=== PATIENT | female | born 1940 | race Caucasian/White ===

== ENCOUNTER 2024-07-13 16:59 | Emergency (ER) | payer MEDICARE, BC ==
[~2024-07-13] VITALS: Ht 152.4 cm; Wt 45.4 kg
[2024-07-13 17:58] VITALS: BP 160/80; TEMP 98.7; O2SAT 98
== END 2024-07-13 17:59 | disposition home or self-care (01) ==
LOC: ER 17:27
DX: S61.411A Laceration without foreign body of right hand, initial encounter (principal); F02.80 Dementia in other diseases classified elsewhere, unspecified severity, without behavioral disturbance, psychotic disturbance, mood disturbance, and anxiety; G30.9 Alzheimer's disease, unspecified; W26.8XXA Contact with other sharp object(s), not elsewhere classified, initial encounter; Y93.89 Activity, other specified; Y92.89 Other specified places as the place of occurrence of the external cause; Y99.8 Other external cause status
CPT/HCPCS: A4606; A4663